=== PATIENT | female | born 1945 | race Caucasian/White ===

== ENCOUNTER 2017-07-17 12:20 | Day surgery (SDC) | payer MEDICARE, OTHER ==
[~2017-07-17] VITALS: Ht 170.2 cm; Wt 72.7 kg
[~2017-07-17 12:20] MED LIST: DICY10CA88 PO; PANT40TA39 PO
[2017-07-17 12:40] VITALS: BP 108/64
[2017-07-17] MEDS ORDERED: MIDAZolam 5mg/5ml vial ONE (12:43)
[2017-07-17] MEDS ORDERED: fentaNYL/PF 50MCG/1 ML 2ML syringe ONE (12:43)
[2017-07-17] MEDS ORDERED: LIDOcaine Viscous 15ml cup ONE (12:43)
[2017-07-17] MEDS ORDERED: ESTR10TA VG (13:00)
[2017-07-17] MEDS ORDERED: MULT-933 PO (13:00)
[2017-07-17] MEDS ORDERED: CALC600T12 PO (13:01)
[2017-07-17] MEDS ORDERED: ASCO500C15 PO (13:02)
[2017-07-17] MEDS ORDERED: VITA150T PO (13:02)
[2017-07-17] MEDS ORDERED: OMEG1CAP2 PO (13:03)
[2017-07-17] MEDS ORDERED: LUTE1CAP PO (13:03)
[2017-07-17 14:17] VITALS: BP 89/42
[2017-07-17 14:27] VITALS: BP 95/55
[2017-07-17 14:37] VITALS: BP 94/50
[2017-07-17 14:47] VITALS: BP 89/53
== END 2017-07-17 15:00 | disposition home or self-care (01) ==
LOC: GI LAB 12:20
PROVIDERS: ATTEND Internal Medicine Gastroenterology
DX: D62 Acute posthemorrhagic anemia (principal); K29.50 Unspecified chronic gastritis without bleeding; K26.9 Duodenal ulcer, unspecified as acute or chronic, without hemorrhage or perforation; F17.210 Nicotine dependence, cigarettes, uncomplicated; K21.9 Gastro-esophageal reflux disease without esophagitis; Z72.89 Other problems related to lifestyle; Z86.010 Personal history of colon polyps; Z79.1 Long term (current) use of non-steroidal anti-inflammatories (NSAID); Z79.899 Other long term (current) drug therapy
CPT/HCPCS: 43239; 45378; 99153; G0500; J2250; J3010; J7030; 88305; 88313; 88342; A4620

== ENCOUNTER 2018-10-09 15:54 | Emergency (ER) | payer MEDICARE, OTHER ==
[~2018-10-09] VITALS: Ht 170.2 cm; Wt 72.7 kg
[~2018-10-09 15:54] MED LIST changes: +ASCO500C15 PO; +CALC600T12 PO; +ESTR10TA VG; +LUTE1CAP PO; +MULT-933 PO; +OMEG1CAP2 PO; +VITA150T PO
[2018-10-09 16:24] LABS: CLARITY,URINE CLEAR (Clear); COLOR,URINE YELLOW (Yellow); GLUCOSE, URINE NEGATIVE (Neg); KETONES,URINE TRACE mg/dl (Neg); LEUKOCYTE ESTERASE ,URINE NEGATIVE (Neg); NITRITES, URINE NEGATIVE (Neg); OCCULT BLOOD,URINE NEGATIVE (Neg); PH,URINE 5.5 (4.8-8.0); PROTEIN,URINE NEGATIVE (Neg); UROBILINOGEN,URINE 0.2 E.U/dL (0.2-1.0)
[2018-10-09] MEDS ORDERED: normal saline 1000ML IV soln IVB ONE (16:30)
[2018-10-09 16:51] LABS: HEMATOCRIT 40.9 % (35.0-45.0); HEMOGLOBIN 13.8 g/dl (12.0-16.0); MEAN CORPUSCULAR HEMOGLOBIN 30.3 PG (27.0-31.0); MEAN CORPUSCULAR HGB CONC 33.8 g/dL (33.0-36.5); MEAN CORPUSCULAR VOLUME 89.5 FL (78-98); MEAN PLATELET VOLUME 8.3 FL (7.4-10.4); PLATELET COUNT 174 X10'3 (140-440); RED BLOOD COUNT 4.56 X10'6 (4.20-5.60); RED CELL DISTRIBUTION WIDTH 13.8 % (11.5-14.5); WHITE BLOOD COUNT 4.7 X10'3 (4.5-11.0)
[2018-10-09 16:53] LABS: UA COLLECTION TYPE CLN CATCH MIDSTREAM
[2018-10-09 17:06] LABS: ALANINE AMINOTRANSFERASE 29 U/L (12-78); ALBUMIN 3.7 G/DL (3.4-5.0); ALKALINE PHOSPHATASE 55 IU/L (46-116); ANION GAP 11 (8-16); ASPARTATE AMINO TRANSFERASE 22 U/L (10-37); BILIRUBIN,TOTAL 0.9 MG/DL (0.1-1.0); BLOOD UREA NITROGEN 13 MG/DL (7-18); BUN/CREATININE RATIO 13.1 (6.6-38.0); CALCIUM 9.3 MG/DL (8.5-10.1); CHLORIDE 105 MMOL/L (99-107); CREATININE 0.99 MG/DL (0.40-0.90); GLUCOSE 102 MG/DL (70-104); POTASSIUM 3.3 MMOL/L (3.5-5.1); SODIUM 141 MMOL/L (135-145); TOTAL CARBON DIOXIDE 24.9 MMOL/L (24-32); TOTAL PROTEIN 7.4 G/DL (6.4-8.2); eGFR 55 ML/MIN
[2018-10-09 17:09] LABS: ETHANOL < 0.010 GM/DL (0.0-0.010); TROPONIN I < 0.04 NG/ML (0.0-0.05)
[2018-10-09] MEDS ORDERED: LORazepam 2 mg/ml vial IV ONE (17:15)
--- NOTE | 2018-10-09 17:23 | NUR ---
MEDICATED PT WITH ATIVAN PER ORDERS, PT TO CT VIA WHEELCHAIR WITH STRAINER TENDER NOW PER ORDERS.
[2018-10-09 18:42] VITALS: BP 113/55
[2018-10-09 18:42] LABS: URINE AMPHETAMINE SCREEN NEGATIVE (Neg); URINE BARBITUATE SCREEN NEGATIVE (Neg); URINE BENZODIAZEPINES SCREEN NEGATIVE (Neg); URINE CANNABINOID SCREEN NEGATIVE (Neg); URINE COCAINE SCREEN NEGATIVE (Neg); URINE METHADONE SCREEN NEGATIVE (Neg); URINE OPIATE SCREEN NEGATIVE (Neg); URINE PHENCYCLIDINE SCREEN NEGATIVE (Neg)
[2018-10-09 19:52] LABS: TOTAL CELLS COUNTED 100
[2018-10-09 19:53] LABS: PLATELET ESTIMATE NORMAL
== END 2018-10-09 18:40 | disposition home or self-care (01) ==
LOC: ER 15:55
DX: R25.8 Other abnormal involuntary movements (principal); R11.2 Nausea with vomiting, unspecified; R19.5 Other fecal abnormalities; Z79.899 Other long term (current) drug therapy
CPT/HCPCS: 36415; 70450; 80053; 80305; 80320; 81003; 84484; 85025; 85610; 93005; 96361; 96374; 99284; J2060; J7030